=== PATIENT | female | born 2000 | race American Indian/Alaskan Native ===

== ENCOUNTER 2021-09-16 05:51 | Outpatient (CLI) | payer OTHER, MEDICAID ==
[2021-09-16 06:23] VITALS: BP 110/68
== END 2021-09-16 09:23 | disposition home or self-care (01) ==
LOC: TRG 05:51 → APU 06:07 → TRG 09:23
PROVIDERS: ATTEND Student in an Organized Health Care Education/Training Program
DX: Z34.93 Encounter for supervision of normal pregnancy, unspecified, third trimester (principal); Z3A.37 37 weeks gestation of pregnancy
CPT/HCPCS: 59025

== ENCOUNTER 2021-09-21 12:13 | Outpatient (CLI) | payer OTHER, MEDICAID ==
[2021-09-21 13:36] VITALS: BP 104/71
--- NOTE | 2021-09-21 13:46 | Ultrasound Report ---
ULTRASOUND OBSTETRIC LIMITED ULTRASOUND BIOPHYSICAL PROFILE INDICATION / CLINICAL INFORMATION: well being. Clinical Gestational Age (GA): 38.2 weeks.days COMPARISON: None available. FINDINGS: BREATHING MOVEMENT = 0 GROSS BODY MOVEMENT = 2 TONE = 2 QUALITATIVE AMNIOTIC FLUID VOLUME = 2 TOTAL BIOPHYSICAL SCORE = 6/8 HEART RATE (beats per minute): 137 AMNIOTIC FLUID INDEX (cm) = 10.8 (normal = 7-24 cm) PRESENTATION: Cephalic. ADDITIONAL FINDINGS: None. IMPRESSION: 1. Biophysical Score = 6/8 2. Amniotic fluid index is normal. Signer Name: Abelardo Borges MD Signed: 09/21/2021 1:42 PM Workstation Name: [email or web address]
== END 2021-09-21 14:04 | disposition home or self-care (01) ==
LOC: TRG 12:13 → APU 12:15 → TRG 14:04
PROVIDERS: ATTEND Student in an Organized Health Care Education/Training Program
DX: Z34.93 Encounter for supervision of normal pregnancy, unspecified, third trimester (principal); Z3A.38 38 weeks gestation of pregnancy
CPT/HCPCS: 59025; 76815; 76819

== ENCOUNTER 2021-09-24 20:34 | Inpatient (IN) | payer OTHER, MEDICAID ==
[2021-09-24] MEDS ORDERED: miSOPROStol 200 MCG TAB PR PRN (21:03)
[2021-09-24] MEDS ORDERED: LIDOCAINE (2%) 20 MG/1 ML VIAL 20 ML MDV INFILTRATI ONE (21:03)
[2021-09-24] MEDS ORDERED: fentaNYL 100 MCG/2 ML INJ IV PRN (21:03)
[2021-09-24] MEDS ORDERED: PROMETHAZINE 25 MG TAB PO PRN (21:03)
[2021-09-24] MEDS ORDERED: LOPERAMIDE 2 MG CAP PO PRN (21:03)
[2021-09-24] MEDS ORDERED: BUTORPHANOL 2 MG/1 ML INJ IV PRN (21:03)
[2021-09-24] MEDS ORDERED: CARBOPROST TROMETHAMINE 250 MCG/1 ML INJ IM PRN (21:03)
[2021-09-24] MEDS ORDERED: OXYTOCIN 10 UNIT/1 ML INJ IM PRN (21:03)
[2021-09-24] MEDS ORDERED: ACETAMINOPHEN 325 MG TAB PO PRN (21:03)
[2021-09-24] MEDS ORDERED: ePHEDrine SULFATE 50 MG/1 ML INJ IV PRN (21:03)
[2021-09-24] MEDS ORDERED: TERBUTALINE 1 MG/1 ML INJ SUB-Q PRN (21:03)
[2021-09-24] MEDS ORDERED: METHYLERGONOVINE MALEATE 0.2 MG/ML VIAL IM PRN (21:03)
[2021-09-24] MEDS ORDERED: MINERAL OIL 30 ML ORAL LIQD PO PRN (21:03)
[2021-09-24] MEDS ORDERED: NALOXONE 0.4 MG/1 ML INJ IV PRN (21:03)
--- NOTE | 2021-09-24 21:09 | History and Physical Report ---
History of Present Illness Date of examination: 09/24/21 Date of admission: 09/24/21 20:34 Chief complaint: I'm here for my induction. History of present illness: Pt presents to L&D for IOL per [facility] recommendations d/t IUGR and meconium peritonitis. Of note, patient was to have a MRI on 09/22 but she did not make that appointment. States that she could not find the office of where the MRI was to be completed. EDC Confirmation: 10/03/2021 Gestational Age: 38.5 weeks on admission Past History : 1 Term Births: 0 Premature Births: 0 Living Children: 0 Para: 0 Mult. Births: 0 Prev : 0 Aborta: 0 Elect. Ab: 0 Spont. Ab: 0 Ectopics: 0 Past Medical History: Negative Past Medical History Past Surgical History: Negative Past Surgical History Family History Summary: First Degree Blood Relative - Has No Known Family History - Entered On: 04/04/2021 Social History: Reviewed history and no changes required: Smoking History: Patient is a former smoker. Past Medical History Anesthesia Complications: negative Anemia: negative Autoimmune Disorder: negative Bleeding Disorder: negative Blood Transfusions: negative Breast Disease: negative Diabetes: negative Heart Disease: negative Hypertension: negative Hepatitis/Liver Disease: negative Kidney Disease/UTI: negative Neurologic/Epilepsy/Migraines: negative Phlebitis/Varicosities: negative Psychiatric: negative Pulmonary Disease/Asthma: negative Thyroid Disease: negative Hospitalizations: negative Surgery (Non-research management associate): Negative Past Surgical History Abnormal PAP: negative PETE Exposure: negative Infertility: negative Uterine Anomaly: negative Uterine Surgery (not C/S): negative Other Gynecologic Problems: negative Social Hx: Smoking History: Patient is a former smoker. Infection History Hx of STD: none HIV Risk Eval: no Hepatitis B Risk Eval: low risk Personal hx. of genital herpes: yes Partner hx. of genital herpes: no Rash, Viral, or Febrile illness since last LMP? no Varicella/Chicken Pox Status: Unknown TB Risk: no Genetic History Congenital Heart Defect: Mom: no Dad: no Martell Disease: Mom: no Dad: no Thalassemia Mom: no Dad: no Neural Tube Defect Mom: no Dad: no Down's Syndrome Mom: no Dad: no Carlos Alberto-Sachs Mom: no Dad: no Sickle Cell Disease/Trait Mom: no Dad: no Hemophilia Mom: no Dad: no Muscular Dystrophy Mom: no Dad: no Cystic Fibrosis Mom: no Dad: no [place] Chorea Mom: no Dad: no Mental Retardation Mom: no Dad: no Fragile X Mom: no Dad: no Other Genetic/Chromosomal Disorder Mom: no Dad: no Child w/other defect Mom: no Dad: no Enviromental Exposures Enviromental Exposures Reviewed Xray Exposure: no Medication, drug, or alcohol use since LMP: no Chemical/Other Exposure: no Exposure to Cat Liter: no Hx of Parvovirus (Fifth Disease): no Occupational Exposure to Children: none Active Medications (reviewed today): None Current Allergies (reviewed today): No known allergies Past History Past Medical History: no pertinent history Past Surgical History: no surgical history Family/Genetic History: none Social history: no significant social history - Obstetrical History Expected Date of Delivery: 10/03/21 Actual Gestation: 38 Week(s) 5 Day(s) : 1 Para: 0 Hx # Term Pregnancies: 0 Number of Pregnancies: 0 Spontaneous Abortions: 0 Induced : 0 Number of Living Children: 0 Medications and Allergies Allergies Allergy/AdvReac Type Severity Reaction Status Date / Time No Known Allergies Allergy Verified 09/21/21 12:30 Review of Systems All systems: negative - Vital Signs Vital signs: Spoke with CLARICE Portillo from the NICU team regarding patient not getting the MRI as planned. We discussed NICU recommendation to start IOL at or after midnight. It is preferred and as much as possible that the patient deliver during the day. This is d/t better coordination of getting the imagining if needed and a smoother transfer of care to [place] if needed. Also discussed patient with Dr. Edmond regarding NICU request. - Physical Exam Breasts: Positive: deferred Cardiovascular: Regular rate Lungs: Positive: Normal air movement Abdomen: Positive: normal appearance, soft Genitourinary (Female): Positive: normal external genitalia, normal perenium Vulva: both: normal Vagina: Positive: normal moisture Uterus: Positive: normal size (For abdomen) Extremities: Positive: normal - Obstetrical FHR: category 1 Uterine Contraction Monitor Mode: External Cervical Dilatation: 1.5 Cervical Effacement Percentage: 50 station: -3 Uterine Contraction Pattern: Absent Results Result Diagrams: 09/24/21 21:30 All other labs normal. GBS POSITIVE HBsAg Screen Negative Negative *1 RPR Non Reactive Non Reactive *2 Rubella Antibodies, IgG 6.49 index Immune >0.99 *3 Non-immune <0.90 Equivocal 0.90 - 0.99 Immune >0.99 ABO Grouping AB *4 Rh Factor Positive *5 Please note: Prior records for this patient's ABO / Rh type are not available for additional verification. Antibody Screen Negative Negative *6 Tests: (3) HB Solu + Rflx Fra ([id number]) Hemoglobin (Hgb) Solubility Negative Negative *55 Tests: (4) HIV Ag/Ab with Reflex ([id number]) HIV Screen 4th Generation wRfx Non Reactive Non Reactive *56 Tests: (5) Varicella-Zoster V Ab, IgG ([id number]) ! Varicella Zoster IgG 710 index Immune >165 *57 Negative <135 Equivocal 135 - 165 Positive >165 A positive result generally indicates exposure to the pathogen or administration of specific immunoglobulins, but it is not indication of active infection or stage of disease. Tests: (6) Varicella-Zoster Ab, IgM ([id number]) ! Varicella-Zoster Ab, IgM <0.91 index 0.00-0.90 *58 Negative <0.91 Borderline 0.91 - 1.09 Positive >1.09 Tests: (7) HCV Antibody reflex to CONSUELO ([id number]) ! HCV Ab <0.1 s/co ratio 0.0-0.9 *59 Tests: (8) Interpretation: ([id number]) ! Interpretation: SPRCS *60 Negative Not infected with HCV, unless recent infection is suspected or other evidence exists to indicate HCV infection. Assessment and Plan A: 20 y.o. @ 38.5 wks, IOL d/t IUGR and meconium peritonitis. Cervical exam 1.5/50/-3. - Patient Problems (1) 38 to 41 weeks gestation of Current Visit: Yes Status: Acute Plan to address problem: Admit to labor and delivery. Initiate IV. Draw admission labs. Continuous EFM. NICU aware that patient is admitted. Will start IOL with low dose Pitocin. Medication ordered for sleep prn. IV pain medications ordered. (2) abnormality in Current Visit: Yes Status: Acute Qualifiers: Fetus number: single or unspecified fetus Qualified Code(s): O35.9XX0 - Mat ernal care for (suspected) abnormality and damage, unspecified, not applicable or unspecified Plan to address problem: Meconium Peritonitis: NICU aware and will be @ delivery. (3) GBS (group B streptococcus) infection Current Visit: Yes Status: Acute Plan to address problem: Antibiotics during labor. (4) IUGR (intrauterine growth restriction) affecting care of mother Current Visit: Yes Status: Acute Qualifiers: Fetus number: single or unspecified fetus Trimester: third trimester Qualified Code(s): O36.5930 - Maternal care for other known or suspected poor growth, third trimester, not applicable or unspecified Plan to address problem: NICU to be @ delivery. Continue to monitor status during labor through EFM.
[2021-09-24] MEDS ORDERED: OXYTOCIN DRIP 30 UNITS/500 ML BAG IV SCH (22:00)
[2021-09-24] MEDS ORDERED: AMPICILLIN/NS 2 GM/100 ML 2 GM/100 ML BAG IV ONE (22:00)
[2021-09-24] MEDS ORDERED: ZOLPIDEM 5 MG TAB PO PRN (22:38)
[2021-09-24 22:46] LABS: Hematocrit 31.4 % (30.3-42.9); Hemoglobin 10.4 gm/dl (10.1-14.3); Mean Corpuscular HGB Conc 33 % (30-34); Mean Corpuscular Volume 83 fl (79-97); Platelet Count 321 K/mm3 (140-440); Red Blood Count 3.78 M/mm3 (3.65-5.03); Red Cell Distribution Width 12.8 % (13.2-15.2)
[2021-09-25] MEDS ORDERED: OXYTOCIN DRIP 30 UNITS/500 ML BAG IV SCH (01:00)
[2021-09-25] MEDS ORDERED: AMPICILLIN/NS 2 GM/100 ML 2 GM/100 ML BAG IV ONE (01:45)
[2021-09-25] MEDS: LACTATED RINGERS 1,000 ML IV SCH ×4 (02:14→23:17)
[2021-09-25] MEDS: AMPICILLIN/NS 1 GM/50 ML 1 GM/50 ML BAG IV SCH ×4 (06:50→20:08)
--- NOTE | 2021-09-25 08:29 | Progress Note ---
Assessment and Plan - Patient Problems (1) IUGR (intrauterine growth restriction) affecting care of mother Current Visit: Yes Status: Acute Qualifiers: Fetus number: single or unspecified fetus Trimester: third trimester Qualified Code(s): O36.5930 - Maternal care for other known or suspected poor growth, third trimester, not applicable or unspecified Plan to address problem: Discussed with the patient the nature of serial induction. Questions answered. Discussed the risks of and. indications for operative intervention. Will allow the breakfast and AM care. Afterwards will start Pitocin induction and continue until this evening. At that time reassess if labor has not started we'll stop induction. We'll allow to eat and possibly repeat Cervidil this evening. If labor is progressing or other indications to continue induction we'll do so at that time. Subjective - Subjective Date of service: 09/25/21 Patient reports: movement normal, contractions (rare), no new complaints, no vaginal bleeding Objective - Vital Signs Vital Signs: Vital Signs - 12hr 09/24/21 09/24/21 09/24/21 21:27 21:32 21:37 Temperature Pulse Rate 86 84 82 Respiratory Rate Blood Pressure Blood Pressure [Right] O2 Sat by Pulse 100 100 100 Oximetry O2 Sat by Pulse Oximetry [ Bilateral] 09/24/21 09/24/21 09/24/21 21:42 21:47 21:49 Temperature Pulse Rate 83 84 80 Respiratory Rate Blood Pressure 109/56 Blood Pressure [Right] O2 Sat by Pulse 100 100 Oximetry O2 Sat by Pulse Oximetry [ Bilateral] 09/24/21 09/24/21 09/24/21 21:52 21:57 21:59 Temperature 98.4 F Pulse Rate 87 83 Respiratory 20 Rate Blood Pressure Blood Pressure 109/56 [Right] O2 Sat by Pulse 100 100 Oximetry O2 Sat by Pulse 100 Oximetry [ Bilateral] 09/24/21 09/24/21 09/24/21 22:02 22:07 22:12 Temperature Pulse Rate 86 86 87 Respiratory Rate Blood Pressure Blood Pressure [Right] O2 Sat by Pulse 100 98 98 Oximetry O2 Sat by Pulse Oximetry [ Bilateral] 09/24/21 09/24/21 09/24/21 22:20 22:25 22:30 Temperature Pulse Rate 91 H 97 H Respiratory Rate Blood Pressure Blood Pressure [Right] O2 Sat by Pulse 90 98 99 Oximetry O2 Sat by Pulse Oximetry [ Bilateral] 09/24/21 09/24/21 09/24/21 22:35 22:40 22:45 Temperature Pulse Rate 76 80 71 Respiratory Rate Blood Pressure Blood Pressure [Right] O2 Sat by Pulse 99 100 99 Oximetry O2 Sat by Pulse Oximetry [ Bilateral] 09/24/21 09/24/21 09/24/21 22:50 22:55 23:00 Temperature Pulse Rate 83 67 75 Respiratory Rate Blood Pressure Blood Pressure [Right] O2 Sat by Pulse 98 99 100 Oximetry O2 Sat by Pulse Oximetry [ Bilateral] 09/24/21 09/24/21 09/24/21 23:05 23:10 23:15 Temperature Pulse Rate 58 L 65 66 Respiratory Rate Blood Pressure Blood Pressure [Right] O2 Sat by Pulse 100 99 100 Oximetry O2 Sat by Pulse Oximetry [ Bilateral] 09/24/21 09/24/21 09/24/21 23:20 23:25 23:30 Temperature Pulse Rate 74 72 60 Respiratory Rate Blood Pressure Blood Pressure [Right] O2 Sat by Pulse 99 98 100 Oximetry O2 Sat by Pulse Oximetry [ Bilateral] 09/24/21 09/24/21 09/24/21 23:35 23:40 23:45 Temperature Pulse Rate 65 76 70 Respiratory Rate Blood Pressure Blood Pressure [Right] O2 Sat by Pulse 99 99 99 Oximetry O2 Sat by Pulse Oximetry [ Bilateral] 09/24/21 09/24/21 09/25/21 23:50 23:55 00:00 Temperature Pulse Rate 68 70 86 Respiratory Rate Blood Pressure Blood Pressure [Right] O2 Sat by Pulse 99 99 99 Oximetry O2 Sat by Pulse Oximetry [ Bilateral] 09/25/21 09/25/21 09/25/21 00:05 00:10 00:15 Temperature Pulse Rate 78 73 65 Respiratory Rate Blood Pressure Blood Pressure [Right] O2 Sat by Pulse 100 100 100 Oximetry O2 Sat by Pulse Oximetry [ Bilateral] 09/25/21 09/25/21 09/25/21 00:20 00:25 00:30 Temperature Pulse Rate 75 80 76 Respiratory Rate Blood Pressure Blood Pressure [Right] O2 Sat by Pulse 99 100 99 Oximetry O2 Sat by Pulse Oximetry [ Bilateral] 09/25/21 09/25/21 09/25/21 00:35 00:40 00:45 Temperature Pulse Rate 76 79 90 Respiratory Rate Blood Pressure Blood Pressure [Right] O2 Sat by Pulse 98 97 99 Oximetry O2 Sat by Pulse Oximetry [ Bilateral] 09/25/21 09/25/21 09/25/21 00:50 00:55 01:00 Temperature Pulse Rate 68 82 68 Respiratory Rate Blood Pressure Blood Pressure [Right] O2 Sat by Pulse 99 99 100 Oximetry O2 Sat by Pulse Oximetry [ Bilateral] 09/25/21 09/25/21 09/25/21 01:05 01:10 01:15 Temperature Pulse Rate 79 83 70 Respiratory Rate Blood Pressure Blood Pressure [Right] O2 Sat by Pulse 99 99 100 Oximetry O2 Sat by Pulse Oximetry [ Bilateral] 09/25/21 09/25/21 09/25/21 01:20 01:25 01:30 Temperature Pulse Rate 84 74 76 Respiratory Rate Blood Pressure Blood Pressure [Right] O2 Sat by Pulse 99 100 98 Oximetry O2 Sat by Pulse Oximetry [ Bilateral] 09/25/21 09/25/21 09/25/21 01:40 01:42 01:45 Temperature Pulse Rate 80 87 83 Respiratory Rate Blood Pressure Blood Pressure [Right] O2 Sat by Pulse 98 90 98 Oximetry O2 Sat by Pulse Oximetry [ Bilateral] 09/25/21 09/25/21 09/25/21 01:50 01:55 02:00 Temperature Pulse Rate 93 H 81 63 Respiratory Rate Blood Pressure Blood Pressure [Right] O2 Sat by Pulse 98 98 100 Oximetry O2 Sat by Pulse Oximetry [ Bilateral] 09/25/21 09/25/21 09/25/21 02:05 02:10 02:15 Temperature Pulse Rate 66 70 68 Respiratory Rate Blood Pressure Blood Pressure [Right] O2 Sat by Pulse 99 100 99 Oximetry O2 Sat by Pulse Oximetry [ Bilateral] 09/25/21 09/25/21 09/25/21 02:20 02:25 02:30 Temperature Pulse Rate 74 61 68 Respiratory Rate Blood Pressure Blood Pressure [Right] O2 Sat by Pulse 99 98 99 Oximetry O2 Sat by Pulse Oximetry [ Bilateral] 09/25/21 09/25/21 09/25/21 02:35 02:40 02:45 Temperature Pulse Rate 62 67 69 Respiratory Rate Blood Pressure Blood Pressure [Right] O2 Sat by Pulse 99 99 99 Oximetry O2 Sat by Pulse Oximetry [ Bilateral] 09/25/21 09/25/21 09/25/21 02:50 02:55 03:00 Temperature Pulse Rate 69 75 78 Respiratory Rate Blood Pressure Blood Pressure [Right] O2 Sat by Pulse 99 99 99 Oximetry O2 Sat by Pulse Oximetry [ Bilateral] 09/25/21 09/25/21 09/25/21 03:05 03:10 03:15 Temperature Pulse Rate 72 85 75 Respiratory Rate Blood Pressure Blood Pressure [Right] O2 Sat by Pulse 99 99 94 Oximetry O2 Sat by Pulse Oximetry [ Bilateral] 09/25/21 09/25/21 09/25/21 03:20 03:25 03:30 Temperature Pulse Rate 63 77 83 Respiratory Rate Blood Pressure Blood Pressure [Right] O2 Sat by Pulse 99 97 99 Oximetry O2 Sat by Pulse Oximetry [ Bilateral] 09/25/21 09/25/21 09/25/21 03:35 03:40 03:45 Temperature Pulse Rate 78 85 78 Respiratory Rate Blood Pressure Blood Pressure [Right] O2 Sat by Pulse 99 99 99 Oximetry O2 Sat by Pulse Oximetry [ Bilateral] 09/25/21 09/25/21 09/25/21 03:50 03:53 03:55 Temperature Pulse Rate 77 86 64 Respiratory Rate Blood Pressure Blood Pressure [Right] O2 Sat by Pulse 98 91 99 Oximetry O2 Sat by Pulse Oximetry [ Bilateral] 09/25/21 09/25/21 09/25/21 03:58 04:00 04:05 Temperature Pulse Rate 86 85 72 Respiratory Rate Blood Pressure Blood Pressure [Right] O2 Sat by Pulse 91 98 99 Oximetry O2 Sat by Pulse Oximetry [ Bilateral] 09/25/21 09/25/21 09/25/21 04:10 04:15 04:20 Temperature Pulse Rate 73 69 71 Respiratory Rate Blood Pressure Blood Pressure [Right] O2 Sat by Pulse 99 99 99 Oximetry O2 Sat by Pulse Oximetry [ Bilateral] 09/25/21 09/25/21 09/25/21 04:25 04:29 04:30 Temperature Pulse Rate 81 101 H 69 Respiratory Rate Blood Pressure Blood Pressure [Right] O2 Sat by Pulse 98 93 99 Oximetry O2 Sat by Pulse Oximetry [ Bilateral] 09/25/21 09/25/21 09/25/21 04:35 04:40 04:41 Temperature Pulse Rate 84 65 76 Respiratory Rate Blood Pressure Blood Pressure [Right] O2 Sat by Pulse 99 100 91 Oximetry O2 Sat by Pulse Oximetry [ Bilateral] 09/25/21 09/25/21 09/25/21 04:45 04:50 04:55 Temperature Pulse Rate 69 63 86 Respiratory Rate Blood Pressure Blood Pressure [Right] O2 Sat by Pulse 99 99 98 Oximetry O2 Sat by Pulse Oximetry [ Bilateral] 09/25/21 09/25/21 09/25/21 05:00 05:05 05:10 Temperature Pulse Rate 65 104 H 74 Respiratory Rate Blood Pressure Blood Pressure [Right] O2 Sat by Pulse 100 98 100 Oximetry O2 Sat by Pulse Oximetry [ Bilateral] 09/25/21 09/25/21 09/25/21 05:11 05:24 05:29 Temperature Pulse Rate 77 82 86 Respiratory Rate Blood Pressure Blood Pressure [Right] O2 Sat by Pulse 92 83 L 99 Oximetry O2 Sat by Pulse Oximetry [ Bilateral] 09/25/21 09/25/21 09/25/21 05:34 05:39 05:44 Temperature Pulse Rate 71 66 68 Respiratory Rate Blood Pressure Blood Pressure [Right] O2 Sat by Pulse 99 99 100 Oximetry O2 Sat by Pulse Oximetry [ Bilateral] 09/25/21 09/25/21 09/25/21 05:49 05:54 05:57 Temperature Pulse Rate 81 60 80 Respiratory Rate Blood Pressure Blood Pressure [Right] O2 Sat by Pulse 99 100 94 Oximetry O2 Sat by Pulse Oximetry [ Bilateral] 09/25/21 09/25/21 09/25/21 05:59 06:04 06:09 Temperature Pulse Rate 60 63 69 Respiratory Rate Blood Pressure Blood Pressure [Right] O2 Sat by Pulse 100 99 100 Oximetry O2 Sat by Pulse Oximetry [ Bilateral] 09/25/21 09/25/21 09/25/21 06:14 06:19 06:24 Temperature Pulse Rate 70 59 L 62 Respiratory Rate Blood Pressure Blood Pressure [Right] O2 Sat by Pulse 99 100 99 Oximetry O2 Sat by Pulse Oximetry [ Bilateral] 09/25/21 09/25/21 09/25/21 06:29 06:34 06:39 Temperature Pulse Rate 67 71 63 Respiratory Rate Blood Pressure Blood Pressure [Right] O2 Sat by Pulse 99 99 99 Oximetry O2 Sat by Pulse Oximetry [ Bilateral] 09/25/21 09/25/21 09/25/21 06:44 06:49 06:53 Temperature Pulse Rate 69 63 86 Respiratory Rate Blood Pressure Blood Pressure [Right] O2 Sat by Pulse 99 100 90 Oximetry O2 Sat by Pulse Oximetry [ Bilateral] 09/25/21 09/25/21 09/25/21 06:54 06:59 07:04 Temperature Pulse Rate 70 62 68 Respiratory Rate Blood Pressure Blood Pressure [Right] O2 Sat by Pulse 100 100 98 Oximetry O2 Sat by Pulse Oximetry [ Bilateral] 09/25/21 09/25/21 09/25/21 07:07 07:09 07:14 Temperature Pulse Rate 85 75 77 Respiratory Rate Blood Pressure Blood Pressure [Right] O2 Sat by Pulse 92 99 99 Oximetry O2 Sat by Pulse Oximetry [ Bilateral] 09/25/21 09/25/21 09/25/21 07:19 07:24 07:27 Temperature Pulse Rate 75 62 Respiratory Rate Blood Pressure Blood Pressure [Right] O2 Sat by Pulse 100 99 Oximetry O2 Sat by Pulse 99 Oximetry [ Bilateral] 09/25/21 09/25/21 09/25/21 07:29 07:34 07:39 Temperature Pulse Rate 66 70 77 Respiratory Rate Blood Pressure Blood Pressure [Right] O2 Sat by Pulse 99 100 98 Oximetry O2 Sat by Pulse Oximetry [ Bilateral] 09/25/21 09/25/21 09/25/21 07:41 07:44 07:49 Temperature 98.1 F Pulse Rate 77 61 82 Respiratory 16 Rate Blood Pressure 104/57 Blood Pressure 104/57 [Right] O2 Sat by Pulse 99 100 95 Oximetry O2 Sat by Pulse Oximetry [ Bilateral] 09/25/21 09/25/21 09/25/21 07:50 07:54 07:56 Temperature Pulse Rate 82 73 82 Respiratory Rate Blood Pressure Blood Pressure [Right] O2 Sat by Pulse 89 98 86 Oximetry O2 Sat by Pulse Oximetry [ Bilateral] 09/25/21 09/25/21 09/25/21 07:59 08:04 08:09 Temperature Pulse Rate 73 88 70 Respiratory Rate Blood Pressure Blood Pressure [Right] O2 Sat by Pulse 100 82 L 98 Oximetry O2 Sat by Pulse Oximetry [ Bilateral] 09/25/21 09/25/21 09/25/21 08:14 08:19 08:23 Temperature Pulse Rate 79 82 85 Respiratory Rate Blood Pressure Blood Pressure [Right] O2 Sat by Pulse 99 100 84 Oximetry O2 Sat by Pulse Oximetry [ Bilateral] 09/25/21 08:24 Temperature Pulse Rate 91 H Respiratory Rate Blood Pressure Blood Pressure [Right] O2 Sat by Pulse 92 Oximetry O2 Sat by Pulse Oximetry [ Bilateral] - Exam Breasts: deferred Cardiovascular: Regular rate Lungs: Normal air movement Abdomen: Present: normal appearance - Labs Labs: Abnormal Labs 09/24/21 21:30 WBC 11.4 H RDW 12.8 L Laboratory Results - last 24 hr 09/24/21 09/24/21 09/24/21 21:30 21:30 21:30 WBC 11.4 H RBC 3.78 Hgb 10.4 Hct 31.4 MCV 83 MCH 28 MCHC 33 RDW 12.8 L Plt Count 321 Syphilis IgG Antibody Nonreactive Blood Type AB POSITIVE Antibody Screen Negative
[2021-09-25] MEDS: OXYTOCIN DRIP 30 UNITS/500 ML BAG IV SCH ×4 (11:03→16:01)
--- NOTE | 2021-09-25 14:53 | Event Note ---
Date: 09/25/21 Pitocin @ 16mu/min Tracing reviewed Spoke with RN patient is comfortable and will continue induction per protocol.
[2021-09-25] MEDS ORDERED: ePHEDrine SULFATE 50 MG/1 ML INJ IV PRN (19:55)
[2021-09-25] MEDS ORDERED: NALOXONE 2 MG/2 ML INJ IV PRN (19:55)
--- NOTE | 2021-09-25 19:58 | Anesthesia Consultation ---
Anesthesia Consult and Med Hx Date of service: 09/25/21 - Airway Anesthetic Teeth Evaluation: Poor ROM Head & Neck: Adequate Mental/Hyoid Distance: Adequate Mallampati Class: Class II Intubation Access Assessment: Good - Pulmonary Exam CTA: Yes - Cardiac Exam Cardiac Exam: RRR - Pre-Operative Health Status ASA Pre-Surgery Classification: ASA2 Proposed Anesthetic Plan: Epidural - Pulmonary Hx Smoking: Yes (Patient is a former smoker.) Hx Asthma: No Hx Respiratory Symptoms: No SOB: No COPD: No Home Oxygen Therapy: No Hx Pneumonia: No Hx Sleep Apnea: No - Cardiovascular System Hx Hypertension: No Hx Coronary Artery Disease: No Hx Heart Attack/AMI: No Hx Angina: No Hx Percutaneous Transluminal Coronary Angioplasty (PTCA): No Hx Cardia Arrhythmia: No Hx Pacemaker: No Hx Internal Defibrillator: No Hx Valvular Heart Disease: No Hx Heart Murmur: No Hx Peripheral Vascular Disease: No - Central Nervous System Hx Neuromuscular Disorder: No Hx Seizures: No CVA: No Hx Back Pain: Yes Hx Psychiatric Problems: No - Gastrointestinal Hx Ulcer: No Hx Gastroesophageal Reflux Disease: Yes - Endocrine Hx Renal Disease: No Hx End Stage Renal Disease: No Hx Cirrhosis: No Hx Liver Disease: No Hx Insulin Dependent Diabetes: No Hx Non-Insulin Dependent Diabetes: No Hx Thyroid Disease: No Hx Hypothyroidism: No Hx Hyperthyroidism: No - Hematic Hx Anemia: No Hx Sickle Cell Disease: No - Other Systems Hx Alcohol Use: No Hx Substance Use: No Hx Cancer: No Hx Obesity: Yes
--- NOTE | 2021-09-25 20:35 | Progress Note ---
Labor Epidural - Labor Epidural Start Time: 20:10 Stop Time: 20:23 Performed by:: HEATH SHIRLEY Procedure: Patient is requesting a laboring epidural for laboring pain. Patient IDed, H&P reviewed, all questions and concerns were answered, and consent was signed. Timeout was performed at bedside. Patient in sitting position. Sterile prep and drape was performed. [3] ml of 1% lidocaine skin wheal at L[3]- L [4]. 18- gauge Tuohy epidural needle was advanced to loss of resistance with saline technique 8cm. Negative CSF negative blood. Epidural catheter advanced to [12] centimeters. [NEGATIVE] Aspiration [NEGATIVE] test dose. Sterile dressing applied. Patient tolerated procedure.
[2021-09-25] MEDS ORDERED: fentaNYL-BUPIV 2 MCG/ML-0.125% 200 MCG/100 ML BAG EPIDURAL SCH (21:00)
--- NOTE | 2021-09-25 21:12 | Event Note ---
Date: 09/25/21 Examined the patient the patient is now comfortable after epidural was placed. AROM DONE AND IUPC placed tracing reviewed and reactive will continue Pitocin induction per protocol with the expectation of vaginal delivery.
--- NOTE | 2021-09-25 23:37 | Event Note ---
Date: 09/25/21 Patient cervix was complete 100% effaced and 0+1 station. tracing is consistent with variables consistent with probable head compression. Patient still with a dense epidural will try to push and will decrease epidural dose if necessary.
--- NOTE | 2021-09-26 00:33 | Procedure Note ---
OB Delivery Note - Delivery Date of Delivery: 09/26/21 Surgeon: RHEA MATHIS Estimated blood loss: 300cc - Vaginal Delivery presentation: vertex Delivery position: OA Delivery induction: oxytocin Delivery augmentation: rupture of membranes, pitocin Delivery monitor: external FHT, external uterine, internal uterine Route of delivery: Delivery placenta: spontaneous Delivery cord: nuchal cord, 3 umbilical vessels Episiotomy: none Delivery laceration: other (Left periurethra) Delivery repair: vicryl Anesthesia: epidural Delivery comments: NICU team and attendance for delivery. of infant over intact perineum. to mother's chest for skin to skin. Cord cut and clamped. . Spontaneous delivery of placenta, intact, 3 vessels noted. Perineum and vaginal inspected, laceration repaired with 3-0 Vicryl. Fundus firm, minimal bleeding noted. Infant left in stable condition proximal patient in evaluation in the NICU due to diagnosis of possible meconium peritonitis - Infant A at 1 minute: 8 at 5 minutes: 9 Gender: Female (5 pounds 15 ounces)
[2021-09-26] MEDS ORDERED: WITCH HAZEL/ GLYCERIN PAD TP PRN (05:42)
[2021-09-26] MEDS ORDERED: LANOLIN/ZINC/DIMETHICONE (LANSINOH) 7 GM TP PRN (05:42)
[2021-09-26] MEDS ORDERED: PROMETHAZINE 25 MG TAB PO PRN (05:42)
[2021-09-26] MEDS ORDERED: oxyCODONE /ACETAMINOPHEN 5-325MG TAB PO PRN (05:42)
[2021-09-26] MEDS ORDERED: diphenhydrAMINE 25 MG CAP PO PRN (05:42)
[2021-09-26] MEDS ORDERED: MAGNESIUM HYDROXIDE (MOM) ORAL LIQD UDC PO PRN (05:42)
[2021-09-26] MEDS: IBUPROFEN 600 MG TAB PO SCH ×4 (06:36→23:33)
--- NOTE | 2021-09-26 07:59 | Progress Note ---
Assessment and Plan A: 20 y.o. s/p , approximately 7 hours. P: Continue with care. Anticipate discharge home in AM. Subjective - Subjective Date of service: 09/26/21 Principal diagnosis: s/p approximately 7 hours Patient reports: appetite normal, voiding normally, pain well controlled, ambulating normally : doing well, in NICU Objective - Vital Signs Latest vital signs: Vital Signs Temp Pulse Resp BP BP BP Pulse Ox 09/26/21 04:35 99 F 68 18 98/44 100 09/26/21 03:21 68 105/54 09/26/21 03:12 71 99 09/26/21 03:07 60 100 09/26/21 03:02 58 L 100 09/26/21 03:01 58 L 95/55 09/26/21 02:57 57 L 100 09/26/21 02:52 56 L 100 09/26/21 02:47 63 100 09/26/21 02:42 59 L 100 09/26/21 02:37 60 100 09/26/21 02:32 54 L 100 09/26/21 02:31 59 L 96/52 09/26/21 02:27 59 L 100 09/26/21 02:22 54 L 100 09/26/21 02:17 51 L 100 09/26/21 02:12 59 L 100 09/26/21 02:07 56 L 100 09/26/21 02:02 52 L 100 09/26/21 02:01 60 96/53 91 09/26/21 01:57 97.9 F 55 L 100 09/26/21 01:52 56 L 100 09/26/21 01:47 52 L 100 09/26/21 01:42 52 L 100 09/26/21 01:37 55 L 100 09/26/21 01:32 79 94 09/26/21 01:31 68 108/55 09/26/21 01:27 60 99 09/26/21 01:22 55 L 99 09/26/21 01:17 55 L 98 09/26/21 01:12 54 L 100 09/26/21 01:07 53 L 100 09/26/21 01:02 54 L 102/51 100 09/26/21 01:01 81 L 09/26/21 00:57 56 L 100 09/26/21 00:52 59 L 100 09/26/21 00:47 57 L 100 09/26/21 00:42 68 100 09/26/21 00:37 72 97 09/26/21 00:36 70 91 09/26/21 00:32 84 99 09/26/21 00:27 65 99 09/26/21 00:25 56 L 84 09/26/21 00:22 98.2 F 59 L 100 09/26/21 00:17 65 100 09/26/21 00:12 61 100 09/26/21 00:10 75 99/55 09/26/21 00:09 97 H 94 09/26/21 00:07 75 98 09/26/21 00:02 53 L 97 09/26/21 00:01 64 L 09/25/21 23:57 86 98 09/25/21 23:52 78 100 09/25/21 23:47 79 100 09/25/21 23:42 85 100 09/25/21 23:37 150 H 100 09/25/21 23:34 60 84 09/25/21 23:32 69 100 09/25/21 23:27 53 L 100 09/25/21 23:24 62 92 09/25/21 23:22 74 100 09/25/21 23:17 55 L 100 09/25/21 23:12 57 L 100 09/25/21 23:09 98.2 F 09/25/21 23:07 72 100 09/25/21 23:02 73 100 09/25/21 23:00 67 94 09/25/21 22:57 60 100 09/25/21 22:52 52 L 100 09/25/21 22:49 47 L 113/67 09/25/21 22:47 46 L 100 09/25/21 22:42 58 L 100 09/25/21 22:38 59 L 107/56 09/25/21 22:37 55 L 100 09/25/21 22:32 55 L 100 09/25/21 22:29 65 119/60 09/25/21 22:27 53 L 100 09/25/21 22:22 54 L 100 09/25/21 22:19 65 121/59 09/25/21 22:17 57 L 100 09/25/21 22:12 56 L 100 09/25/21 22:09 53 L 121/58 09/25/21 22:07 53 L 100 09/25/21 22:02 52 L 100 09/25/21 22:00 48 L 118/58 09/25/21 21:57 54 L 100 09/25/21 21:52 51 L 100 09/25/21 21:48 63 120/60 09/25/21 21:47 56 L 100 09/25/21 21:42 57 L 100 09/25/21 21:38 67 116/63 09/25/21 21:37 61 100 09/25/21 21:32 54 L 100 09/25/21 21:29 51 L 119/64 09/25/21 21:27 54 L 100 09/25/21 21:22 50 L 100 09/25/21 21:18 51 L 112/56 09/25/21 21:17 51 L 100 09/25/21 21:12 56 L 100 09/25/21 21:08 60 109/58 09/25/21 21:07 66 100 09/25/21 21:02 61 100 09/25/21 20:59 73 113/57 09/25/21 20:57 67 100 09/25/21 20:52 67 99 09/25/21 20:48 70 114/58 09/25/21 20:47 64 100 09/25/21 20:42 87 99 09/25/21 20:37 81 99 09/25/21 20:32 80 100 09/25/21 20:27 70 99 09/25/21 20:22 77 81 L 09/25/21 20:21 75 75 L 09/25/21 20:17 69 100 09/25/21 20:12 86 100 09/25/21 20:07 66 100 09/25/21 20:04 88 93 09/25/21 20:02 64 100 09/25/21 19:57 81 99 09/25/21 19:52 93 H 98 09/25/21 19:49 73 90 09/25/21 19:47 99 H 98 09/25/21 19:21 64 100 09/25/21 19:16 75 99 09/25/21 19:11 97.9 F 78 12 100 09/25/21 19:06 60 100 09/25/21 19:01 81 99 09/25/21 18:56 56 L 100 09/25/21 18:51 67 99 09/25/21 18:46 67 100 09/25/21 18:27 42 L 91 09/25/21 18:26 92 H 89 09/25/21 18:22 60 99 09/25/21 18:17 68 100 09/25/21 18:12 59 L 99 09/25/21 18:07 67 99 09/25/21 18:02 74 99 09/25/21 18:00 09/25/21 17:57 75 99 09/25/21 17:52 65 100 09/25/21 17:47 90 100 09/25/21 17:42 59 L 100 09/25/21 17:37 66 100 09/25/21 17:32 64 100 09/25/21 17:27 75 100 09/25/21 17:22 61 100 09/25/21 17:17 79 99 09/25/21 17:12 65 100 09/25/21 16:43 64 100 09/25/21 16:38 59 L 100 09/25/21 16:33 64 100 09/25/21 16:28 88 92 09/25/21 16:27 76 93 09/25/21 16:23 76 99 09/25/21 16:18 64 100 09/25/21 16:13 55 L 99 09/25/21 16:08 54 L 99 09/25/21 16:03 58 L 99 09/25/21 15:58 73 96 09/25/21 15:54 75 91 09/25/21 15:53 76 98 09/25/21 15:48 56 L 100 09/25/21 15:43 64 99 09/25/21 15:38 74 100 09/25/21 15:33 83 97 09/25/21 15:26 75 98 09/25/21 15:21 60 100 09/25/21 15:16 62 100 09/25/21 15:11 58 L 100 09/25/21 15:06 60 99 09/25/21 15:01 63 100 09/25/21 14:56 60 100 09/25/21 14:51 61 100 09/25/21 14:46 81 96 09/25/21 14:34 77 99 09/25/21 14:29 65 100 09/25/21 14:24 52 L 100 09/25/21 14:19 84 99 09/25/21 14:14 56 L 99 09/25/21 14:09 55 L 100 09/25/21 14:04 56 L 99 09/25/21 13:59 58 L 99 09/25/21 13:54 60 99 09/25/21 13:49 61 99 09/25/21 13:44 57 L 100 09/25/21 13:39 74 99 09/25/21 13:34 55 L 99 09/25/21 13:29 65 99 09/25/21 13:24 57 L 100 09/25/21 13:19 59 L 100 09/25/21 13:14 53 L 99 09/25/21 13:09 61 100 09/25/21 13:04 74 90 09/25/21 12:49 63 100 09/25/21 12:44 70 98 09/25/21 12:39 59 L 98 09/25/21 12:34 77 98 09/25/21 12:29 62 98 09/25/21 12:24 62 99 09/25/21 12:19 58 L 99 09/25/21 12:14 73 100 09/25/21 12:09 59 L 99 09/25/21 12:04 60 100 09/25/21 11:59 71 99 09/25/21 11:54 77 99 09/25/21 11:49 68 93 09/25/21 11:48 68 118/57 09/25/21 11:45 98 F 63 16 118/57 99 09/25/21 08:38 82 94 09/25/21 08:34 84 99 09/25/21 08:29 86 100 09/25/21 08:24 91 H 92 09/25/21 08:23 85 84 09/25/21 08:19 82 100 09/25/21 08:14 79 99 09/25/21 08:09 70 98 09/25/21 08:04 88 82 L 09/25/21 07:59 73 100 Pulse Ox 09/26/21 04:35 100 09/26/21 03:21 09/26/21 03:12 09/26/21 03:07 09/26/21 03:02 09/26/21 03:01 09/26/21 02:57 09/26/21 02:52 09/26/21 02:47 09/26/21 02:42 09/26/21 02:37 09/26/21 02:32 09/26/21 02:31 09/26/21 02:27 09/26/21 02:22 09/26/21 02:17 09/26/21 02:12 09/26/21 02:07 09/26/21 02:02 09/26/21 02:01 09/26/21 01:57 09/26/21 01:52 09/26/21 01:47 09/26/21 01:42 09/26/21 01:37 09/26/21 01:32 09/26/21 01:31 09/26/21 01:27 09/26/21 01:22 09/26/21 01:17 09/26/21 01:12 09/26/21 01:07 09/26/21 01:02 09/26/21 01:01 09/26/21 00:57 09/26/21 00:52 09/26/21 00:47 09/26/21 00:42 09/26/21 00:37 09/26/21 00:36 09/26/21 00:32 09/26/21 00:27 09/26/21 00:25 09/26/21 00:22 09/26/21 00:17 09/26/21 00:12 09/26/21 00:10 09/26/21 00:09 09/26/21 00:07 09/26/21 00:02 09/26/21 00:01 09/25/21 23:57 09/25/21 23:52 09/25/21 23:47 09/25/21 23:42 09/25/21 23:37 09/25/21 23:34 09/25/21 23:32 09/25/21 23:27 09/25/21 23:24 09/25/21 23:22 09/25/21 23:17 09/25/21 23:12 09/25/21 23:09 09/25/21 23:07 09/25/21 23:02 09/25/21 23:00 09/25/21 22:57 09/25/21 22:52 09/25/21 22:49 09/25/21 22:47 09/25/21 22:42 09/25/21 22:38 09/25/21 22:37 09/25/21 22:32 09/25/21 22:29 09/25/21 22:27 09/25/21 22:22 09/25/21 22:19 09/25/21 22:17 09/25/21 22:12 09/25/21 22:09 09/25/21 22:07 09/25/21 22:02 09/25/21 22:00 09/25/21 21:57 09/25/21 21:52 09/25/21 21:48 09/25/21 21:47 09/25/21 21:42 09/25/21 21:38 09/25/21 21:37 09/25/21 21:32 09/25/21 21:29 09/25/21 21:27 09/25/21 21:22 09/25/21 21:18 09/25/21 21:17 09/25/21 21:12 09/25/21 21:08 09/25/21 21:07 09/25/21 21:02 09/25/21 20:59 09/25/21 20:57 09/25/21 20:52 09/25/21 20:48 09/25/21 20:47 09/25/21 20:42 09/25/21 20:37 09/25/21 20:32 09/25/21 20:27 09/25/21 20:22 09/25/21 20:21 09/25/21 20:17 09/25/21 20:12 09/25/21 20:07 09/25/21 20:04 09/25/21 20:02 09/25/21 19:57 09/25/21 19:52 09/25/21 19:49 09/25/21 19:47 09/25/21 19:21 09/25/21 19:16 09/25/21 19:11 99 09/25/21 19:06 09/25/21 19:01 09/25/21 18:56 09/25/21 18:51 09/25/21 18:46 09/25/21 18:27 09/25/21 18:26 09/25/21 18:22 09/25/21 18:17 09/25/21 18:12 09/25/21 18:07 09/25/21 18:02 09/25/21 18:00 99 09/25/21 17:57 09/25/21 17:52 09/25/21 17:47 09/25/21 17:42 09/25/21 17:37 09/25/21 17:32 09/25/21 17:27 09/25/21 17:22 09/25/21 17:17 09/25/21 17:12 09/25/21 16:43 09/25/21 16:38 09/25/21 16:33 09/25/21 16:28 09/25/21 16:27 09/25/21 16:23 09/25/21 16:18 09/25/21 16:13 09/25/21 16:08 09/25/21 16:03 09/25/21 15:58 09/25/21 15:54 09/25/21 15:53 09/25/21 15:48 09/25/21 15:43 09/25/21 15:38 09/25/21 15:33 09/25/21 15:26 09/25/21 15:21 09/25/21 15:16 09/25/21 15:11 09/25/21 15:06 09/25/21 15:01 09/25/21 14:56 09/25/21 14:51 09/25/21 14:46 09/25/21 14:34 09/25/21 14:29 09/25/21 14:24 09/25/21 14:19 09/25/21 14:14 09/25/21 14:09 09/25/21 14:04 09/25/21 13:59 09/25/21 13:54 09/25/21 13:49 09/25/21 13:44 09/25/21 13:39 09/25/21 13:34 09/25/21 13:29 09/25/21 13:24 09/25/21 13:19 09/25/21 13:14 09/25/21 13:09 09/25/21 13:04 09/25/21 12:49 09/25/21 12:44 09/25/21 12:39 09/25/21 12:34 09/25/21 12:29 09/25/21 12:24 09/25/21 12:19 09/25/21 12:14 09/25/21 12:09 09/25/21 12:04 09/25/21 11:59 09/25/21 11:54 09/25/21 11:49 09/25/21 11:48 09/25/21 11:45 09/25/21 08:38 09/25/21 08:34 09/25/21 08:29 09/25/21 08:24 09/25/21 08:23 09/25/21 08:19 09/25/21 08:14 09/25/21 08:09 09/25/21 08:04 09/25/21 07:59 Intake and Output 09/25/21 09/26/21 09/26/21 22:59 06:59 14:59 Intake Total 1061.600 268.75 Balance 1061.600 268.75 Intake: IV 1061.600 268.75 AMPICILLIN/NS 1 GM/50 ML 50 1 gm In 50 ml @ 100 mls/ hr IV Q4H DORA Rx#: [id number] Lactated Ringers 1,000 ml 983.333 268.75 @ 125 mls/hr IV DIRECT DORA Rx#:[id number] PITOCin/NS 30 UNIT/500ML 28.267 30 units In 500 ml @ 1 mls/hr IV TITR DORA Rx#: [id number] Other: Estimated Blood Loss 300 - Exam Narrative Exam: Pt states that is doing well and will be able to be in the room with her sometime today. Per patient, they told her that there was just air in the infant's abdomen. Cardiovascular: Present: Regular rate Lungs: Present: Normal air movement Abdomen: Present: normal appearance, soft Vulva: both: normal Uterus: Present: normal, firm Extremities: Present: normal
--- NOTE | 2021-09-26 09:31 | Post Anesthesia Evaluation ---
- Post Anesthesia Evaluation Patient Participated: Yes Airway Patent: Yes Stable Respiratory Function: Yes Nausea/Vomiting: No Temp > 96.8F: Yes Pain Manageable: Yes Adequeate Hydration: Yes Anesthesia Complications: No Block Receding Appropriately: Yes Patient on Ventilator: No
[2021-09-26] MEDS: DOCUSATE SODIUM 100 MG CAP PO SCH ×2 (11:00→22:23)
[2021-09-26] MEDS: PRENATAL VIT27-FE FUMARATE-FOLIC ACID VIT TAB PO SCH (11:00)
[2021-09-26 12:12] LABS: Hematocrit 31.1 % (30.3-42.9); Hemoglobin 10.1 gm/dl (10.1-14.3)
[2021-09-27] MEDS: IBUPROFEN 600 MG TAB PO SCH ×3 (05:19→14:47)
--- NOTE | 2021-09-27 07:55 | Discharge Summary ---
Providers - Providers Date of Admission: 09/24/21 20:34 Date of discharge: 09/27/21 Attending physician: REVA VALDIVIA Primary care physician: IGGY ROBLES MD Hospitalization Reason for admission: induction of labor Delivery: Episiotomy: none Laceration: other (Left periurehtra.) Other procedures: none complications: none Discharge diagnosis: IUP at term delivered [place] baby: female Hospital course: S: Pt doing well. Passing flatus, voiding, and ambulating okay. BC: Undecided. O: VSS. Adequate I&O's. H/H 10./31.1. Fundus firm, minimal bleeding noted. A: 20 y.o. s/p . Doing well . In good condition to be discharged home. P: Discharge home with instructions. Pt to schedule visit in the office in 4-6 weeks. Condition at discharge: Good Disposition: 01 HOME / SELF CARE / HOMELESS Plan - Provider Discharge Summary Activity: routine, no sex for 6 weeks, no heavy lifting 4 weeks, no strenuous exercise Diet: routine Instructions: routine Additional instructions: [] Smoking cessation referral if applicable(refer to patient education folder for contact #) [] Refer to [facility] Booklet Call your doctor immediately for: * Fever > 100.5 * Heavy vaginal bleeding ( >1 pad per hour) * Severe persistent headache * Shortness of breath * Reddened, hot, painful area to leg or breast * Drainage or odor from incision. * Keep incision clean and dry at all times and follow doctor's instructions regarding bathing/showering Congratulations on the of your baby girl! Thank you for allowing us to take care of you! Please schedule your visit in the office in 4-6 weeks. Should you have any questions or concerns after discharge, please do not hesitate to call the office at [phone]. - Follow up plan Follow up: IGGY ROBLES MD [Primary Care Provider] - 6 Weeks
[2021-09-27] MEDS: PRENATAL VIT27-FE FUMARATE-FOLIC ACID VIT TAB PO SCH (09:42)
[2021-09-27] MEDS: DOCUSATE SODIUM 100 MG CAP PO SCH (09:43)
[2021-09-27 16:06] VITALS: BP 113/51
== END 2021-09-27 16:15 | disposition home or self-care (01) | DRG 806 ==
LOC: LD 20:34 → OB 09-26 05:21
PROVIDERS: ADMIT Obstetrics & Gynecology; ATTEND Obstetrics & Gynecology
PROC: 10907ZC Drainage of Amniotic Fluid, Therapeutic from Products of Conception, Via Natural or Artificial Opening (ICD-10-PCS; 2021-09-25)
PROC: 10H07YZ Insertion of Other Device into Products of Conception, Via Natural or Artificial Opening (ICD-10-PCS; 2021-09-25)
PROC: 10E0XZZ Delivery of Products of Conception, External Approach (ICD-10-PCS; principal; 2021-09-26)
PROC: 3E0R3BZ Introduction of Anesthetic Agent into Spinal Canal, Percutaneous Approach (ICD-10-PCS; 2021-09-26)
PROC: 00HU33Z Insertion of Infusion Device into Spinal Canal, Percutaneous Approach (ICD-10-PCS; 2021-09-26)
PROC: 3E033VJ Introduction of Other Hormone into Peripheral Vein, Percutaneous Approach (ICD-10-PCS; 2021-09-26)
PROC: 0UQMXZZ Repair Vulva, External Approach (ICD-10-PCS; 2021-09-26)
DX: O98.82 Other maternal infectious and parasitic diseases complicating childbirth (principal); O98.32 Other infections with a predominantly sexual mode of transmission complicating childbirth; Z37.0 Single live birth; B95.1 Streptococcus, group B, as the cause of diseases classified elsewhere; Z3A.38 38 weeks gestation of pregnancy; O36.5930 Maternal care for other known or suspected poor fetal growth, third trimester, not applicable or unspecified; Z20.822 Contact with and (suspected) exposure to COVID-19; O35.9XX0 Maternal care for (suspected) fetal abnormality and damage, unspecified, not applicable or unspecified; A60.00 Herpesviral infection of urogenital system, unspecified; O77.0 Labor and delivery complicated by meconium in amniotic fluid; O99.62 Diseases of the digestive system complicating childbirth; K21.9 Gastro-esophageal reflux disease without esophagitis; O69.81X0 Labor and delivery complicated by cord around neck, without compression, not applicable or unspecified; O71.82 Other specified trauma to perineum and vulva
CPT/HCPCS: 36415; 85014; 85018; 85027; 86592; 86850; 86900; 86901; G0378; J3490; J0290; J2590; J7120; U0003